=== PATIENT | male | born 1945 | race Caucasian/White ===

== ENCOUNTER 2024-12-22 13:41 | Outpatient (CLI) | payer MEDICARE, SELFPAY | END 2024-12-22 13:42 | disposition home or self-care (01) | LOC: AMB 12-23 14:26 | PROVIDERS: Visit Provider Student in an Organized Health Care Education/Training Program | DX: R11.2 Nausea with vomiting, unspecified (principal) | CPT/HCPCS: A0425; A0427 ==

== ENCOUNTER 2024-12-22 14:13 | Inpatient (IN) | payer MEDICARE, SELFPAY ==
[2024-12-22] VITALS (27 sets, daily range): BP systolic 132–167; BP diastolic 66–84; PULSE 69–87; RESP 0–43; TEMP 36.2–36.4; O2SAT 93–97; BMI 24.1; BMI 23.8
--- NOTE | 2024-12-22 14:22 | ED_ITS ---
HPI - General Adult General Chief complaint: Nausea/Vomiting Stated complaint: Nausea, Vomiting Time Seen by Provider: 12/22/24 14:14 History of Present Illness HPI narrative: Bystander called after finding pt. slumped over sitting on a bench and vomitting. He does not remember some of the situation. Pt. said he also feels some eye strain He says this happened when he was 6 or 7 years old 79-year-old man presenting to the emergency department with concern of apparent syncope event and vomiting. He still feeling some nausea. And he recalls having left [place]. Became tired sat on the bench and next thing he knows somebody was waking up And he had vomit on him. He had no chest pain or sense of palpitations. 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 Does not recall more details on this. Has never been cardioverted. Does not have a headache beyond maybe a little ?eye strain?. No seizure history. Prior to this walk today he was in usual state of health. No recent fever cough or cold symptoms. No noted diarrhea. No abdominal pain. Related Data Home Medications ?Medication ?Instructions ?Recorded ?Confirmed albuterol sulfate 90 mcg/actuation 1 - 2 inh inhalation Q4H PRN 12/22/24 12/22/24 breath activated powder inhaler allopurinol 100 mg tablet 200 mg PO DAILY 12/22/24 12/22/24 aspirin 81 mg tablet,delayed 81 mg PO HS 12/22/24 12/22/24 release (Enteric Coated Aspirin) atorvastatin 40 mg tablet 40 mg PO HS 12/22/24 12/22/24 clobetasol 0.05 % topical cream 1 applic topical BID PRN 12/22/24 12/22/24 colchicine 0.6 mg tablet 0.6 mg PO DIRECTED PRN 12/22/24 12/22/24 ferrous sulfate 325 mg (65 mg 325 mg PO Q48H 12/22/24 12/22/24 iron) tablet fluticasone furoate 200 1 inh inhalation DAILY 12/22/24 12/22/24 mcg-vilanterol 25 mcg/dose inhalation powder (Breo Ellipta) fluticasone propionate 50 1 spray intranasal DAILY 12/22/24 12/22/24 mcg/actuation nasal spray,suspension (Flonase Allergy Relief) hydrochlorothiazide 12.5 mg tablet 12.5 mg PO DAILY 12/22/24 12/22/24 metformin 500 mg tablet,extended 1,000 mg PO BID 12/22/24 12/22/24 release 24 hr omeprazole magnesium 20 mg 20 mg PO DAILY 12/22/24 12/22/24 capsule,delayed release valsartan 160 mg tablet 160 mg PO HS 12/22/24 12/22/24 Allergies Allergy/AdvReac Type Severity Reaction Status Date / Time No Known Drug Allergies Allergy Verified 12/22/24 14:25 Review of Systems Status of ROS: Reports: 6 or more systems reviewed and unremarkable except as noted in History and below [facility] Medical History Diabetes mellitus ?E11.9 - Type 2 diabetes mellitus without complications (ICD-10) GERD (gastroesophageal reflux disease) ?K21.9 - Gastro-esophageal reflux disease without esophagitis (ICD-10) Hyperlipidemia ?E78.5 - Hyperlipidemia, unspecified (ICD-10) COPD (chronic obstructive pulmonary disease) ?J44.9 - Chronic obstructive pulmonary disease, unspecified (ICD-10) Gout ?M10.9 - Gout, unspecified (ICD-10) Hypertension ?I10 - Essential (primary) hypertension (ICD-10) Social History What is your current living situation?: I presently have a place to live Problems where you live: no known problems Problems where you live details: none In the past 12 months, utilities in danger of being shut off: no In past 12 months, lack of transportation kept you from medical appts, meetings, work, or getting things needed for daily living: no In the past 12 mos, have been you worried that your food would run out before you had money to buy more?: never true In the past 12 mos, the food you bought just didn't last and you didn't have money to buy more?: never true Highest level of school completed/degree received: some college, no degree Smoking Status: Former smoker Do you use any of these nicotine containing products: None Second hand tobacco smoke exposure: No How often do you have a drink containing alcohol: monthly or less AUDIT-C Alcohol total score: 1 Non-prescribed substance use: denies use Caffeine: Yes (3 cups coffee daily) How often does anyone, including family, friends and others, physically hurt you : never How often does anyone, including family, friends and others, insult or talk down to you: never How often does anyone, including family, friends and others, threaten you with harm: never How often does anyone, including family, friends and others, scream or curse at you: never service: No Exam Narrative: Exam Narrative: Pleasant man NAD. GCS 15. Looks like he doesn't feel very good. He has cold washcloth on his forehead. Cranial nerves 2-12 are intact. Pupils are 2-3 mm and equal and appropriately briskly reactive. Accommodating. Extraocular movements are full without nystagmus. Head is atraumatic. Neck is supple nontender. Back nontender. Lungs clear. Heart with 1/6 systolic crescendo murmur with radiation at least into the right carotid. Heart appears to be in an irregularly irregular rhythm. Abdomen is soft and nontender. He is moving all extremities without difficulty. Well-perfused. Const: Vital Signs, click to edit/add: Vital Signs - 24 hr 12/22/24 14:19 12/22/24 14:25 12/22/24 14:26 Temperature 97.1 F L Pulse Rate 86 87 Pulse Rate [Right Radial] 79 Respiratory Rate 14 8 L 9 L Blood Pressure 167/84 H Blood Pressure [Ri ght Upper Arm] 167/84 H Pulse Oximetry 94 95 95 Oxygen Delivery Me thod Room Air Room Air 12/22/24 14:30 12/22/24 14:43 12/22/24 14:45 Temperature Pulse Rate 84 87 Pulse Rate [Right Radial] Respiratory Rate 9 L 21 Blood Pressure Blood Pressure [Ri ght Upper Arm] Pulse Oximetry 95 97 93 Oxygen Delivery Me thod 12/22/24 15:00 12/22/24 15:08 12/22/24 15:51 Temperature Pulse Rate 84 84 80 Pulse Rate [Right Radial] Respiratory Rate 11 L 12 9 L Blood Pressure 144/66 H Blood Pressure [Ri ght Upper Arm] Pulse Oximetry 96 94 Oxygen Delivery Me thod Room Air 12/22/24 15:52 12/22/24 15:52 12/22/24 16:00 Temperature Pulse Rate 87 87 75 Pulse Rate [Right Radial] Respiratory Rate 13 13 13 Blood Pressure 142/68 H 142/68 H Blood Pressure [Ri ght Upper Arm] Pulse Oximetry 96 93 Oxygen Delivery Me thod 12/22/24 16:15 12/22/24 16:30 12/22/24 16:45 Temperature Pulse Rate 78 74 76 Pulse Rate [Right Radial] Respiratory Rate 0 L 8 L 11 L Blood Pressure Blood Pressure [Ri ght Upper Arm] Pulse Oximetry 96 95 97 Oxygen Delivery Me thod 12/22/24 17:00 12/22/24 17:07 12/22/24 17:07 Temperature Pulse Rate 78 78 Pulse Rate [Right Radial] Respiratory Rate 7 L 12 12 Blood Pressure 138/79 138/79 Blood Pressure [Ri ght Upper Arm] Pulse Oximetry 96 96 Oxygen Delivery Me thod Room Air 12/22/24 17:15 12/22/24 17:30 12/22/24 17:45 Temperature Pulse Rate 77 76 79 Pulse Rate [Right Radial] Respiratory Rate 13 9 L 15 Blood Pressure Blood Pressure [Ri ght Upper Arm] Pulse Oximetry 97 95 97 Oxygen Delivery Me thod Documenting provider has reviewed patient's vital signs: yes Course Vital Signs Vital signs: Initial Vital Signs Temperature 97.1 F L 12/22/24 14:19 Temperature Source Temporal Artery Scan 12/22/24 14:19 Pulse Rate 79 12/22/24 14:19 Pulse Rhythm Regular 12/22/24 14:19 Respiratory Rate 14 12/22/24 14:19 Blood Pressure 167/84 H 12/22/24 14:19 Blood Pressure Mean 111 H 12/22/24 14:19 Pulse Oximetry 94 12/22/24 14:19 Oxygen Delivery Method Room Air 12/22/24 14:19 Vital Signs Temperature 97.1 F L 12/22/24 14:19 Pulse Rate 79 12/22/24 14:19 Respiratory Rate 14 12/22/24 14:19 Blood Pressure 167/84 H 12/22/24 14:19 Pulse Oximetry 94 12/22/24 14:19 Oxygen Delivery Method Room Air 12/22/24 14:19 Temperature 97.1 F L 12/23/24 02:50 Pulse Rate 73 12/23/24 02:50 Respiratory Rate 16 12/23/24 02:50 Blood Pressure 140/74 H 12/23/24 02:50 Pulse Oximetry 96 12/23/24 02:50 Oxygen Delivery Method Room Air 12/23/24 02:50 Medications Administered Medications: Discontinued Medications Generic Name Dose Route Start Last Admin Trade Name Elizabeth PRN Reason Stop Dose Admin Aspirin 324 mg 12/22/24 19:29 12/22/24 21:41 Aspirin 81 Mg Tab.Chew PO 12/22/24 19:30 324 mg ONCE ONE Administration Atorvastatin Calcium 40 mg 12/22/24 21:00 12/22/24 21:40 Atorvastatin Calcium 40 Mg Tablet PO 40 mg HS KB Administration Clopidogrel Bisulfate 300 mg 12/22/24 19:29 12/22/24 21:49 Clopidogrel 300 Mg Tablet PO 12/22/24 19:30 300 mg ONCE ONE Administration Heparin Sodium (Porcine) 4,000 unit 12/22/24 18:59 12/22/24 19:05 Heparin 5,000 Unit/0.5 Ml Inj IVP 12/22/24 19:00 4,000 unit ONCE ONE Administration Sodium Chloride 1,000 mls @ 1,000 mls/hr 12/22/24 14:42 12/22/24 17:08 0.9 % Sodium Chloride 1000 Ml IV 12/22/24 15:41 Infused .Q1H ONE Infusion Heparin Sodium/Dextrose 25,000 unit in 500 mls @ 0 mls/hr 12/22/24 18:30 12/23/24 02:23 Heparin IV 0 unit/hr .Q0M KB 0 mls/hr Infusion Protocol Per Protocol Insulin Aspart 0 unit 12/22/24 21:00 12/22/24 21:41 Insulin Aspart 100 Unit/Ml SUBCUT Not Given ACHS [facility] Protocol Ondansetron HCl 4 mg 12/22/24 14:45 12/22/24 14:55 Ondansetron 2 Mg/Ml Inj IVP 12/22/24 14:46 4 mg ONCE ONE Administration Promethazine HCl 12.5 mg 12/22/24 16:47 12/22/24 17:07 Promethazine 25 Mg/Ml Inj IVP 12/22/24 16:48 12.5 mg ONCE ONE Administration Sodium Chloride 5 ml 12/22/24 21:00 12/22/24 22:46 Sodium Chloride 0.9 % (Flush) 10 Ml Syringe IVF 5 ml BID KB Administration Valsartan 160 mg 12/22/24 21:00 12/22/24 21:48 Valsartan 160 Mg Tablet PO 160 mg HS KB Administration Medical Decision Making MDM Narrative Medical decision making narrative: Appears to have had a syncopal event of unclear origin. Differential includes cerebrovascular event; more specifically head bleed without evidence of ischemic injury at this time, arrhythmia/tachyarrhythmia/dysrhythmia, myocardial infarctions well. May have been simply a vasovagal event related to vomiting secondary to viral illness. Give antiemetic and IV hydration. On monitor during my interview with him he is showing intermittent PVCs as well as what appears to be a rather irregular rhythm. Pending EKG. EKG independently reviewed by me with what initially appears to be atrial fibrillation but p waves appear to be not reliably conducting. Rate of 74. Left bundle? PVCs. No prior for comparison at this time. Flutter? TECHNIQUE: Multiplanar CT examination of the head was performed without the use of intravenous contrast. INDICATION: Syncope. COMPARISON: None. FINDINGS: No loss of blevins-white differentiation to suggest recent territorial infarct. No intracranial hemorrhage, abnormal extra-axial fluid collection, hydrocephalus or midline shift. The ventricles and cerebral sulci are prominent caliber, compatible with mild generalized parenchymal volume loss. Patchy hypoattenuation of the supratentorial white matter diffusely, nonspecific but consistent with chronic microvascular ischemic changes. Tiny hypodensity within the right basal ganglia, possibly a chronic lacunar infarct. The basal cisterns are patent. The paranasal sinuses and mastoid air cells remain clear. Status post bilateral lens removal. The orbits and calvarium are unremarkable. The cerebellar tonsils are normal position. IMPRESSION: 1. No acute intracranial findings. 2. Mild generalized parenchymal volume loss with chronic microvascular ischemic changes. Please note that all CT scans at this facility use dose modulation, iterative reconstruction, and/or weight-based dosing when appropriate to reduce radiation dose to as low as reasonably achievable. Dictated by Rubén Ruiz MD @ 12/22/2024 3:25:11 PM Will need to confirm presence of paroxysmal atrial fibrillation and/or left bundle and medications. Waiting daughter's input. I am not sure if we will be able to otherwise confirm new onset AFib and if might be a candidate for cardioversion. Did also reach out to Cardiology and they also suspect a flutter in this EKG. On reassessment is still feeling nauseated. Ordered for some promethazine. While talking with him it seems as though in a more regular rhythm. Requesting repeat EKG. I am anticipating admission here for monitoring, possible echocardiogram. Did review records just obtained from [facility] in [facility]. Underlying history of [id number] aortic stenosis, diabetes, hypertension, dyslipidemia, tophaceous gout, Arvizu's esophagus Looks like repeat EKG is back in sinus. Rate of 71. PVC. Left bundle. I do see EKG on records obtained from 03/06 and does not appear to have a left bundle at that time Did discuss this case with hospitalist. Will be admitting pending normal repeat troponin Still without chest pain. Overall stable. However approximately 2 hour troponin returns now elevated having gone from 0.02 to 0.17. Discussed again with cardiology. 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 Would like repeat echocardiogram he here if available tomorrow and no appropriate beds current available at [facility] and would like echocardiogram before making further cares. Medical Records Medical records reviewed: Yes I reviewed the patient's medical records Lab Data Lab results reviewed: Yes I reviewed the patient's lab results Labs: Lab Results 12/22/24 12/22/24 12/22/24 Range/Units 14:42 14:44 15:00 WBC 11.55 H (4.50-11.00) K/uL RBC 3.94 L (4.30-5.90) m/uL Hgb 13.6 (13.5-17.5) gm/dL Hct 39.1 (37.0-53.0) % MCV 99 (80-100) fL MCH 35 H (26-34) pg MCHC 35 (32-36) gm/dL RDW Coeff of Terrance 12.4 (11.5-15.5) % Plt Count 170 (140-440) K/uL Neut % (Auto) 73.4 H (42.0-72.0) % Lymph % (Auto) 15.0 L (20-44) % Scott % (Auto) 8.7 (0.0-11.0) % Eos % (Auto) 1.2 (0.0-7.0) % Baso % (Auto) 0.3 (0.0-3.0) % Neut # (Auto) 8.50 H (1.7-7.0) K/uL Lymph # (Auto) 1.70 (0.90-2.90) K/uL Scott # (Auto) 1.00 H (0.00-0.90) K/UL Eos # (Auto) 0.10 (0.00-0.50) K/uL Baso # (Auto) 0.00 (0.00-0.30) K/uL Abs Immat Gran (auto) 0.20 (0.00-0.30) K/uL Imm/Tot Granulo (auto) 1.4 % INR 0.97 (0.91-1.10) APTT 32 (23-33) Seconds Sodium 131 L (135-149) mmol/L Potassium 3.6 (3.6-5.1) mmol/L Chloride 98 (96-114) mmol/L Carbon Dioxide 21 (20-32) mmol/L Anion Gap 12 (7-15) mEq/L BUN 15 (7-30) mg/dL Creatinine 1.0 (0.5-1.5) mg/dL Estimated Creat Clear 59.82 Estimated GFR 76 ml/min Glucose 192 H (60-115) mg/dL Lactate (0.5-1.9) mmol/L Calcium 9.1 (8.4-10.6) mg/dL Phosphorus 2.9 (2.5-4.5) mg/dL Magnesium 1.9 (1.5-2.6) mg/dL Total Bilirubin 0.5 (0.1-1.5) mg/dL Direct Bilirubin 0.3 (0.0-0.5) mg/dL AST 39 H (12-35) U/L ALT 36 (4-50) U/L Alkaline Phosphatase 66 (40-150) U/L Troponin I 0.02 (0.01-0.04) ng/mL NT-Pro-B Natriuret Pep 430 pg/mL Total Protein 6.7 (6.0-8.3) g/dL Albumin 4.3 (3.3-5.0) g/dL Urine Color Yellow (Yellow) Urine Appearance Clear (Clear) Urine pH 6.0 (5.0-8.5) Ur Specific [place] 1.015 (1.000-1.030) Urine Protein 1+ A (Negative) Urine Glucose (UA) Negative (Negative) Urine Ketones Trace A (Negative) Urine Blood Negative (Negative) Urine Nitrite Negative (Negative) Urine Bilirubin Negative (Negative) Urine Urobilinogen 0.2 (0.2-1.0) Ur Leukocyte Esterase Negative (Negative) Urine RBC 0-2 (0-2) Urine WBC 0-2 (0-5) Ur Squamous Epith Cells None (None-Few) Other Sediment Few A (None) Urine Bacteria None (None) SARS-CoV-2 (PCR) Negative SARS-CoV-2 (Negative) Influenza Type A (PCR) Negative PCR FLU A (Negative) Influenza Type B (PCR) Negative PCR FLU B (Negative) RSV (PCR) Negative PCR RSV (Negative) POC Troponin I 0.02 (0.01-0.04) ng/ml 12/22/24 12/22/24 Range/Units 16:08 17:20 WBC (4.50-11.00) K/uL RBC (4.30-5.90) m/uL Hgb (13.5-17.5) gm/dL Hct (37.0-53.0) % MCV (80-100) fL MCH (26-34) pg MCHC (32-36) gm/dL RDW Coeff of Terrance (11.5-15.5) % Plt Count (140-440) K/uL Neut % (Auto) (42.0-72.0) % Lymph % (Auto) (20-44) % Scott % (Auto) (0.0-11.0) % Eos % (Auto) (0.0-7.0) % Baso % (Auto) (0.0-3.0) % Neut # (Auto) (1.7-7.0) K/uL Lymph # (Auto) (0.90-2.90) K/uL Scott # (Auto) (0.00-0.90) K/UL Eos # (Auto) (0.00-0.50) K/uL Baso # (Auto) (0.00-0.30) K/uL Abs Immat Gran (auto) (0.00-0.30) K/uL Imm/Tot Granulo (auto) % INR (0.91-1.10) APTT (23-33) Seconds Sodium (135-149) mmol/L Potassium (3.6-5.1) mmol/L Chloride (96-114) mmol/L Carbon Dioxide (20-32) mmol/L Anion Gap (7-15) mEq/L BUN (7-30) mg/dL Creatinine (0.5-1.5) mg/dL Estimated Creat Clear Estimated GFR ml/min Glucose (60-115) mg/dL Lactate 1.3 (0.5-1.9) mmol/L Calcium (8.4-10.6) mg/dL Phosphorus (2.5-4.5) mg/dL Magnesium (1.5-2.6) mg/dL Total Bilirubin (0.1-1.5) mg/dL Direct Bilirubin (0.0-0.5) mg/dL AST (12-35) U/L ALT (4-50) U/L Alkaline Phosphatase (40-150) U/L Troponin I 0.17 H* (0.01-0.04) ng/mL NT-Pro-B Natriuret Pep pg/mL Total Protein (6.0-8.3) g/dL Albumin (3.3-5.0) g/dL Urine Color (Yellow) Urine Appearance (Clear) Urine pH (5.0-8.5) Ur Specific [place] (1.000-1.030) Urine Protein (Negative) Urine Glucose (UA) (Negative) Urine Ketones (Negative) Urine Blood (Negative) Urine Nitrite (Negative) Urine Bilirubin (Negative) Urine Urobilinogen (0.2-1.0) Ur Leukocyte Esterase (Negative) Urine RBC (0-2) Urine WBC (0-5) Ur Squamous Epith Cells (None-Few) Other Sediment (None) Urine Bacteria (None) SARS-CoV-2 (PCR) (Negative) Influenza Type A (PCR) (Negative) Influenza Type B (PCR) (Negative) RSV (PCR) (Negative) POC Troponin I (0.01-0.04) ng/ml ECG Data Attestation: I personally reviewed and interpreted this ECG as follows: (1. Possibly atrial flutter at a rate of 74. Left bundle. PVCs ) Discharge Plan Discharge Clinical Impression: Atrial flutter, Syncope, Unifocal PVCs, Left bundle branch block (LBBB), Non-ST elevation [place] (NSTEMI) Patient Disposition: Admitted As Observation Condition: Stable
[2024-12-22] MEDS: ONDANSETRON 2 MG/ML inj 4 MG IVP (14:55)
[2024-12-22] MEDS: 0.9 % SODIUM CHLORIDE 1000 ml 1,000 ML IV (14:56)
[2024-12-22 15:09] LABS: Basophils Percent Auto 0.3 % (0.0-3.0); Eosinophils Percent Auto 1.2 % (0.0-7.0); Hematocrit 39.1 % (37.0-53.0); Hemoglobin* 13.6 gm/dL (13.5-17.5); Immature Granulocytes Pct Auto 1.4 %; Mean Corpuscular HGB Conc 35 gm/dL (32-36); Mean Corpuscular Hemoglobin 35 pg (26-34); Mean Corpuscular Volume 99 fL (80-100); Monocytes Percent Auto 8.7 % (0.0-11.0); Neutrophils Percent Auto 73.4 % (42.0-72.0); Platelet Count* 170 K/uL (140-440); RDW Coefficient of Variation % 12.4 % (11.5-15.5); Red Blood Count 3.94 m/uL (4.30-5.90); White Blood Count* 11.55 K/uL (4.50-11.00)
[2024-12-22 15:13] LABS: Troponin, Point-of-Care* 0.02 ng/ml (0.01-0.04)
[2024-12-22 15:16] LABS: Slide Review Reflex No
[2024-12-22 15:21] LABS: Chloride* 98 mmol/L (96-114); Potassium* 3.6 mmol/L (3.6-5.1); Sodium* 131 mmol/L (135-149)
[2024-12-22 15:24] LABS: Anion Gap 12 mEq/L (7-15); Blood Urea Nitrogen* 15 mg/dL (7-30); Calcium* 9.1 mg/dL (8.4-10.6); Carbon Dioxide* 21 mmol/L (20-32); Est. Creatinine Clearance* 59.82; Estimated Glomerular Filt Rate 76 ml/min; Glucose* 192 mg/dL (60-115)
[2024-12-22 15:25] LABS: Magnesium* 1.9 mg/dL (1.5-2.6)
[2024-12-22 16:03] LABS: NT Pro B Type NatriureticPept* 430 pg/mL
[2024-12-22 16:06] LABS: Troponin I* 0.02 ng/mL (0.01-0.04)
[2024-12-22 16:12] LABS: Lactate* 1.3 mmol/L (0.5-1.9)
[2024-12-22] MEDS: PROMETHAZINE 25 MG/ML INJ 12.5 MG IVP (17:07)
[2024-12-22 18:01] LABS: Appearance Urine Clear (Clear); Bilirubin Urine Negative (Negative); Blood Urine Negative (Negative); Color Urine Yellow (Yellow); Glucose Urine Negative (Negative); Ketones Urine Trace (Negative); Leukocyte Esterase Urine Negative (Negative); Nitrite Urine Negative (Negative); Protein Urine 1+ (Negative); Specific Gravity Urine 1.015 (1.000-1.030); Urobilinogen Urine 0.2 (0.2-1.0)
[2024-12-22 18:15] LABS: RBC Urine 0-2 (0-2); WBC Urine 0-2 (0-5)
[2024-12-22 18:16] LABS: Other Sediment Urine Few
[2024-12-22 18:18] LABS: Troponin I* 0.17 ng/mL (0.01-0.04)
[2024-12-22 18:36] LABS: PCR FLU A Negative PCR FLU A (Negative); PCR FLU B Negative PCR FLU B (Negative); PCR RSV Negative PCR RSV (Negative); SARS PCR* Negative SARS-CoV-2 (Negative)
[2024-12-22] MEDS: HEPARIN 25,000 UNIT/500 ML BAG 18 UNIT IV (18:50)
[2024-12-22] MEDS: HEPARIN 5,000 UNIT/0.5 ML INJ 4000 UNIT IVP (19:05)
[2024-12-22 19:42] LABS: Albumin* 4.3 g/dL (3.3-5.0)
[2024-12-22 19:45] LABS: Alanine Aminotransferase* 36 U/L (4-50); Alkaline Phosphatase* 66 U/L (40-150); Aspartate Amino Transferase* 39 U/L (12-35); Bilirubin Direct* 0.3 mg/dL (0.0-0.5); Bilirubin Total* 0.5 mg/dL (0.1-1.5); Phosphorus* 2.9 mg/dL (2.5-4.5); Total Protein* 6.7 g/dL (6.0-8.3)
--- NOTE | 2024-12-22 19:54 | PM.IMHP1 ---
Hospitalist- H&P: COLE History of Present Illness Date Seen: 12/22/24 Chief complaint: Nausea, Vomiting Narrative: Angel Guerrero is a 79 year old male past medical history significant for hypertension, diabetes mellitus on metformin, gout, hyperlipidemia, COPD, GERD is admitted to the medical floor from the ED for further management of a NSTEMI. Patient is seen with daughter, Katie, at bedside. Patient reports waking this morning, feeling his normal self, going about his usual activities. [place] and began feeling mildly short of breath after approximately 5-6 blocks. Was also feeling some soreness in his hips. He remembers sitting down on a bench to rest. He remembers nothing after that other than speaking with a couple who were inquiring if he was okay. He was still sitting on the bench at that time and noticed that he had vomited on himself as well. Denies any headaches, dizziness, lightheadedness today. Denies any chest pain or tightness today. Has had his usual shortness of breath, no worse than usual. He tells me he used to walk 5 miles a day but this was approximately 8 years ago. He then started biking on a tricycle. In the last year or so he walks approximately 6000 steps before needing to rest due to feeling short of breath. He tells me he took his rescue inhaler with him today in case he needed it. No recent fevers. He was not nauseous earlier this morning. He had been nauseous with further vomiting while in the ED. Nausea has resolved since receiving Zofran and Compazine. Denies abdominal pain or bloating today. Last bowel movement was this morning and was normal for him. No recent change in medications. Patient recently moved to [place] from [facility]. Currently resides at [facility], in independent living. Previous primary care was at [facility] [place]. Unfortunately, we have no available records in EMR. Patient tells me he has had an echocardiogram in the recent past. Denies history of arrhythmias on previous EKGs or on his last echo. No previous ND or stents. Former smoker having quit years ago. Rare alcohol use following a dry October. Wishes to be DNR/DNI as discussed with patient and daughter, Katie, a RN at [facility]. In the ED, patient was noted to have an arrhythmia, possibly flutter with PVCs. A repeat EKG showing a sinus rhythm. Both with LBBB. Initial troponin 0.02. This trended up to 0.17. Nausea resolved with antiemetics. No chest pain reported. ED provider discussed with DARLYN CastilloW, cardiology, recommending local hospitalization with echocardiogram tomorrow. Follow-up with cardiology pending results if showing significant disease is recommended. No bed availability for transfer reported. Review of Systems Narrative: REVIEW OF SYSTEMS: Complete review of systems performed and negative unless otherwise stated in HPI or below. PFSH PFSH Medical History Diabetes mellitus ?E11.9 - Type 2 diabetes mellitus without complications (ICD-10) GERD (gastroesophageal reflux disease) ?K21.9 - Gastro-esophageal reflux disease without esophagitis (ICD-10) Hyperlipidemia ?E78.5 - Hyperlipidemia, unspecified (ICD-10) COPD (chronic obstructive pulmonary disease) ?J44.9 - Chronic obstructive pulmonary disease, unspecified (ICD-10) Gout ?M10.9 - Gout, unspecified (ICD-10) Hypertension ?I10 - Essential (primary) hypertension (ICD-10) Social History Smoking Status: Former smoker Do you use any of these nicotine containing products: None Second hand tobacco smoke exposure: No How often do you have a drink containing alcohol: monthly or less AUDIT-C Alcohol total score: 1 Non-prescribed substance use: denies use service: No Meds Home Medications and Allergies Home Medications ?Medication ?Instructions ?Recorded ?Confirmed ?Type albuterol sulfate 90 mcg/actuation 1 - 2 inh inhalation Q4H PRN 12/22/24 12/22/24 History breath activated powder inhaler allopurinol 100 mg tablet 200 mg PO DAILY 12/22/24 12/22/24 History aspirin 81 mg tablet,delayed 81 mg PO HS 12/22/24 12/22/24 History release (Enteric Coated Aspirin) atorvastatin 40 mg tablet 40 mg PO HS 12/22/24 12/22/24 History clobetasol 0.05 % topical cream 1 applic topical BID PRN 12/22/24 12/22/24 History colchicine 0.6 mg tablet 0.6 mg PO DIRECTED PRN 12/22/24 12/22/24 History ferrous sulfate 325 mg (65 mg 325 mg PO Q48H 12/22/24 12/22/24 History iron) tablet fluticasone furoate 200 1 inh inhalation DAILY 12/22/24 12/22/24 History mcg-vilanterol 25 mcg/dose inhalation powder (Breo Ellipta) fluticasone propionate 50 1 spray intranasal DAILY 12/22/24 12/22/24 History mcg/actuation nasal spray,suspension (Flonase Allergy Relief) hydrochlorothiazide 12.5 mg tablet 12.5 mg PO DAILY 12/22/24 12/22/24 History metformin 500 mg tablet,extended 1,000 mg PO BID 12/22/24 12/22/24 History release 24 hr omeprazole magnesium 20 mg 20 mg PO DAILY 12/22/24 12/22/24 History capsule,delayed release valsartan 160 mg tablet 160 mg PO HS 12/22/24 12/22/24 History Allergies Allergy/AdvReac Type Severity Reaction Status Date / Time No Known Drug Allergies Allergy Verified 12/22/24 14:25 Exam Narrative: Exam Narrative: PHYSICAL EXAM General: Pleasant, conversant, NAD HEENT: Normocephalic, atraumatic, sclera white, EOMI, oral mucosa moist Cardiovascular: RRR, murmur noted. No pitting edema Pulmonary: CTA bilaterally without rhonchi, rales, expiratory wheezes. No dyspnea on room air Abdominal: Soft, nondistended, NTTP Neurological: Alert, answering questions appropriately, cranial nerves intact, no focal findings Extremities: No gross joint deformity or swelling. AROMI. Neurovascularly intact Skin: Warm, dry. Const: Vital Signs, click to edit/add: Vital Signs - 24 hr 12/22/24 14:19 12/22/24 14:25 12/22/24 14:26 Temperature 97.1 F L Pulse Rate 86 87 Pulse Rate [Right Radial] 79 Respiratory Rate 14 8 L 9 L Blood Pressure 167/84 H Blood Pressure [Ri ght Upper Arm] 167/84 H Pulse Oximetry 94 95 95 Oxygen Delivery Me thod Room Air Room Air 12/22/24 14:30 12/22/24 14:43 12/22/24 14:45 Temperature Pulse Rate 84 87 Pulse Rate [Right Radial] Respiratory Rate 9 L 21 Blood Pressure Blood Pressure [Ri ght Upper Arm] Pulse Oximetry 95 97 93 Oxygen Delivery Me thod 12/22/24 15:00 12/22/24 15:08 12/22/24 15:51 Temperature Pulse Rate 84 84 80 Pulse Rate [Right Radial] Respiratory Rate 11 L 12 9 L Blood Pressure 144/66 H Blood Pressure [Ri ght Upper Arm] Pulse Oximetry 96 94 Oxygen Delivery Me thod Room Air 12/22/24 15:52 12/22/24 15:52 12/22/24 16:00 Temperature Pulse Rate 87 87 75 Pulse Rate [Right Radial] Respiratory Rate 13 13 13 Blood Pressure 142/68 H 142/68 H Blood Pressure [Ri ght Upper Arm] Pulse Oximetry 96 93 Oxygen Delivery Me thod 12/22/24 16:15 12/22/24 16:30 12/22/24 16:45 Temperature Pulse Rate 78 74 76 Pulse Rate [Right Radial] Respiratory Rate 0 L 8 L 11 L Blood Pressure Blood Pressure [Ri ght Upper Arm] Pulse Oximetry 96 95 97 Oxygen Delivery Me thod 12/22/24 17:00 12/22/24 17:07 12/22/24 17:07 Temperature Pulse Rate 78 78 Pulse Rate [Right Radial] Respiratory Rate 7 L 12 12 Blood Pressure 138/79 138/79 Blood Pressure [Ri ght Upper Arm] Pulse Oximetry 96 96 Oxygen Delivery Me od Room Air 12/22/24 17:15 12/22/24 17:30 12/22/24 17:45 Temperature Pulse Rate 77 76 79 Pulse Rate [Right Radial] Respiratory Rate 13 9 L 15 Blood Pressure Blood Pressure [Ri ght Upper Arm] Pulse Oximetry 97 95 97 Oxygen Delivery Me thod 12/22/24 18:49 12/22/24 18:50 12/22/24 19:00 Temperature Pulse Rate 80 78 74 Pulse Rate [Right Radial] Respiratory Rate 13 12 43 H Blood Pressure 139/71 Blood Pressure [Ri ght Upper Arm] Pulse Oximetry 94 95 97 Oxygen Delivery Me thod 12/22/24 19:02 12/22/24 19:03 Temperature Pulse Rate 77 77 Pulse Rate [Right Radial] Respiratory Rate 8 L 10 L Blood Pressure 133/69 149/75 H Blood Pressure [Ri ght Upper Arm] Pulse Oximetry 95 96 Oxygen Delivery Me thod Room Air Hospitalist - H&P: Result Labs Labs: Short CBC 12/22/24 Range/Units 15:00 WBC 11.55 H (4.50-11.00) K/uL Hgb 13.6 (13.5-17.5) gm/dL Hct 39.1 (37.0-53.0) % Plt Count 170 (140-440) K/uL BMP 12/22/24 15:00 Sodium 131 L Potassium 3.6 Chloride 98 Carbon Dioxide 21 BUN 15 Creatinine 1.0 Glucose 192 H Calcium 9.1 Cardiac Enzymes 12/22/24 12/22/24 Range/Units 15:00 17:20 Troponin I 0.02 0.17 H* (0.01-0.04) ng/mL Liver Function 12/22/24 Range/Units 15:00 Total Bilirubin 0.5 (0.1-1.5) mg/dL Direct Bilirubin 0.3 (0.0-0.5) mg/dL AST 39 H (12-35) U/L ALT 36 (4-50) U/L Alkaline Phosphatase 66 (40-150) U/L Albumin 4.3 (3.3-5.0) g/dL Urine 12/22/24 Range/Units 14:42 Urine Color Yellow (Yellow) Urine Appearance Clear (Clear) Urine pH 6.0 (5.0-8.5) Ur Specific [place] 1.015 (1.000-1.030) Urine Protein 1+ A (Negative) Urine Glucose (UA) Negative (Negative) ECG Attestation: I personally reviewed and interpreted this ECG as follows: ECG interpretation date: 12/22/24 Interpretation: Two EKGs are reviewed. Initial at 2:51 p.m. does show what could be a flutter with PVCs, LBBB. Repeat EKG at 1655 shows a sinus rhythm, P waves present, Pac, LBBB Imaging CT scan - head: Attestation: I have reviewed the pertinent imaging results. Radiologist's impression: No loss of blevins-white differentiation to suggest recent territorial infarct. No intracranial hemorrhage, abnormal extra-axial fluid collection, hydrocephalus or midline shift. The ventricles and cerebral sulci are prominent caliber, compatible with mild generalized parenchymal volume loss. Patchy hypoattenuation of the supratentorial white matter diffusely, nonspecific but consistent with chronic microvascular ischemic changes. Tiny hypodensity within the right basal ganglia, possibly a chronic lacunar infarct. The basal cisterns are patent. The paranasal sinuses and mastoid air cells remain clear. Status post bilateral lens removal. The orbits and calvarium are unremarkable. The cerebellar tonsils are normal position. IMPRESSION: 1. No acute intracranial findings. 2. Mild generalized parenchymal volume loss with chronic microvascular ischemic changes. Assessment and Plan Assessment and plan (1) Syncope: Problem comment: Syncopal episode with vomiting - resolved. No previous history CT head shows no acute intracranial findings. Mild generalized parenchymal volume loss with chronic microvascular ischemic changes noted EKG findings as discussed below, elevated troponin Mild leukocytosis with left shift, lactate 1.3, UA unremarkable, triple swab negative CXR ordered - lungs clear, no acute appearing findings Echocardiogram in the morning PT/OT to assess. visitor services representative for discharge planning if would need services beyond independent living Status: Acute (2) Non-ST elevation ND (NSTEMI): Problem comment: Syncope, atrial flutter, LBBB, elevated troponin, murmur ED provider discussed with Dr. Wagner, Cardiology [facility]. No evidence of heart block at time of conversation. Recommending local hospitalization with echocardiogram tomorrow. Recommending calling Cardiology curbside tomorrow if there is concern about significant disease following echocardiogram Telemetry Trend troponin, repeat EKG Mag and phos WNL, AST 39 otherwise LFTs unremarkable, BNP 430, sodium 131, potassium 3.6 Heparin drip, clopidogrel, aspirin Consider Zio Patch 14 day with outpatient cardiology follow-up Status: Acute (3) Left bundle branch block (LBBB): Problem comment: Noted on both EKGs, no previous known history. ED provider discussed with Cardiology Telemetry Echocardiogram tomorrow Status: Acute (4) Atrial flutter: Problem comment: Noted on initial EKG, rate controlled Sinus rhythm on admission to floor. ED provider discussed both EKG findings with Cardiology Repeat EKG tonight. Echo ordered for tomorrow. No previous EKG for comparison Telemetry Consider rate control and anticoagulation if confirmed. Heparin drip for now Status: Acute (5) Hypertension: Problem comment: Continue valsartan Hold HCTZ in setting of mild hyponatremia Status: Acute (6) Gout: Problem comment: Hold allopurinol in setting of mild hyponatremia. Uses colchicine p.r.n. as well Status: Acute (7) COPD (chronic obstructive pulmonary disease): Problem comment: Stable, no hypoxia. Continue home inhalers. Incentive spirometry Status: Acute (8) Hyperlipidemia: Problem comment: Continue statin Lipid panel ordered Status: Acute (9) GERD (gastroesophageal reflux disease): Problem comment: Continue PPI Status: Acute (10) Diabetes mellitus: Problem comment: A1c ordered Hold metformin Glucose checks ACHS, insulin sliding scale Status: Acute (11) Hyponatremia: Problem comment: Sodium 131, unknown baseline. Hold allopurinol and HCTZ. Recheck in a.m. Status: Acute Total Time Spent Total Time Spent: Today I spent 75 minutes seeing the patient, discussing the patient with ER staff, reviewing Expanse and Epic notes/diagnostics, discussing the care plan with our team that includes social work, PT/OT, pharmacy, RT, group home and documenting my impressions and plan in the medical record.
[2024-12-22 20:52] LABS: INR 0.97 (0.91-1.10); Prothrombin Time 13.7 Seconds
[2024-12-22 20:53] LABS: Partial Thromboplastin Time* 32 Seconds (23-33)
[2024-12-22] MEDS: ATORVASTATIN CALCIUM 40 MG TABLET PO (21:40)
[2024-12-22] MEDS: ASPIRIN 81 MG TAB.CHEW 324 MG PO (21:41)
[2024-12-22] MEDS: VALSARTAN 160 MG TABLET PO (21:48)
[2024-12-22] MEDS: CLOPIDOGREL 300 MG TABLET PO (21:49)
[2024-12-22 21:55] LABS: Troponin I* 0.24 ng/mL (0.01-0.04)
[2024-12-22] MEDS: SODIUM CHLORIDE 0.9 % (FLUSH) 10 ML SYRINGE 5 ML IVF (22:46)
--- NOTE | 2024-12-22 22:49 | PM.DS1 ---
DS: Providers Provider Date Seen: 12/22/24 Date of admission: 12/22/24 19:29 Primary care physician: Herman Randhawa. Not yet established locally. [facility] Cons[facility]: 12/22/24 19:29 Consult to Occupational Therapy [CONS] Routine Comment: Reason(s) for OT Consult:: Evaluate and Treat Any Restrictions?:: No Restrictions Consult to Physical Therapy [CONS] Routine Comment: Reason(s) for PT Consult:: Evaluate and Treat Any Restrictions?:: No Restrictions Consult to Senior Investigator [CONS] Routine Comment: Reason for Consult:: Social Service Consult Attending Physician on discharge: [facility] Date of Discharge: 12/22/24 DS: Diagnosis Discharge Diagnosis (1) Syncope: Status: Acute Problem details: Syncopal episode with vomiting - resolved. No previous history CT head shows no acute intracranial findings. Mild generalized parenchymal volume loss with chronic microvascular ischemic changes noted EKG findings as discussed below, elevated troponin Mild leukocytosis with left shift, lactate 1.3, UA unremarkable, triple swab negative CXR ordered - lungs clear, no acute appearing findings Echocardiogram in the morning PT/OT to assess. manager social services for discharge planning if would need services beyond independent living (2) Non-ST elevation DE (NSTEMI): Status: Acute Problem details: Syncope, atrial flutter, LBBB, elevated troponin, murmur ED provider discussed with Dr. Wagner, Cardiology [facility]. No evidence of heart block at time of conversation. Recommending local hospitalization with echocardiogram tomorrow. Recommending calling Cardiology curbside tomorrow if there is concern about significant disease following echocardiogram Telemetry Trend troponin, repeat EKG Mag and phos WNL, AST 39 otherwise LFTs unremarkable, BNP 430, sodium 131, potassium 3.6 Heparin drip, clopidogrel, aspirin Consider Zio Patch 14 day with outpatient cardiology follow-up (3) Left bundle branch block (LBBB): Status: Acute Problem details: Noted on both EKGs, no previous known history. ED provider discussed with Cardiology Telemetry Echocardiogram tomorrow (4) Atrial flutter: Status: Acute Problem details: Noted on initial EKG, rate controlled Sinus rhythm on admission to floor. ED provider discussed both EKG findings with Cardiology Repeat EKG tonight. Echo ordered for tomorrow. No previous EKG for comparison Telemetry Consider rate control and anticoagulation if confirmed. Heparin drip for now (5) Hypertension: Status: Acute Problem details: Continue valsartan Hold HCTZ in setting of mild hyponatremia (6) Gout: Status: Acute Problem details: Hold allopurinol in setting of mild hyponatremia. Uses colchicine p.r.n. as well (7) COPD (chronic obstructive pulmonary disease): Status: Acute Problem details: Stable, no hypoxia. Continue home inhalers. Incentive spirometry (8) Hyperlipidemia: Status: Acute Problem details: Continue statin Lipid panel ordered (9) GERD (gastroesophageal reflux disease): Status: Acute Problem details: Continue PPI (10) Diabetes mellitus: Status: Acute Problem details: A1c ordered Hold metformin Glucose checks ACHS, insulin sliding scale (11) Hyponatremia: Status: Acute Problem details: Sodium 131, unknown baseline. Hold allopurinol and HCTZ. Recheck in a.m. DS: Summary Hospital Course Hospital Course: [age] year old male was admitted to the medical floor for further management NSTEMI following syncopal episode with vomiting. Course of care and details as noted above. Following admission to the medical floor from the ED, 6 hour troponin continued to trend up, 0.24 (0.02->0.17). Repeat EKG showing sinus rhythm, PACs, LBBB, no significant change but more regular rhythm noted. Remained vitally stable. Still no complaint of chest pain. Nausea and vomiting had resolved. Discussed again with [facility] Cardiology, Dr. Sarah, recommending transfer for expedited cardiology evaluation, echocardiogram, possible need for technical laboratory asst. Bed available at [facility] with 1-2 hour delay. Patient will be transported via ground, ALS. Continue on heparin drip. Received loading dose of clopidogrel 300mg and ASA 324mg on admission to the medical floor. Currently, no oxygen needs. Remainder of chronic medical comorbidities were monitored and managed with home medications. Status at Discharge Overall status at discharge: patient is not back to baseline Time Spent with Patient Time attestation: Total time spent providing and/or coordinating discharge services: Time spent: Greater than 30 minutes Exam Narrative: Exam Narrative: PHYSICAL EXAM General: Pleasant, conversant, NAD Cardiovascular: RRR Pulmonary: No dyspnea Neurological: Alert, answering questions appropriately Skin: Warm, dry. Const: Vital Signs, click to edit/add: Vital Signs - 24 hr 12/22/24 14:19 12/22/24 14:25 12/22/24 14:26 Temperature 97.1 F L Pulse Rate 86 87 Pulse Rate [Pulse Oximeter] Pulse Rate [Right Radial] 79 Respiratory Rate 14 8 L 9 L Blood Pressure 167/84 H Blood Pressure [Ri ght Arm] Blood Pressure [Ri ght Upper Arm] 167/84 H Pulse Oximetry 94 95 95 Oxygen Delivery Me thod Room Air Room Air 12/22/24 14:30 12/22/24 14:43 12/22/24 14:45 Temperature Pulse Rate 84 87 Pulse Rate [Pulse Oximeter] Pulse Rate [Right Radial] Respiratory Rate 9 L 21 Blood Pressure Blood Pressure [Ri ght Arm] Blood Pressure [Ri ght Upper Arm] Pulse Oximetry 95 97 93 Oxygen Delivery Me thod 12/22/24 15:00 12/22/24 15:08 12/22/24 15:51 Temperature Pulse Rate 84 84 80 Pulse Rate [Pulse Oximeter] Pulse Rate [Right Radial] Respiratory Rate 11 L 12 9 L Blood Pressure 144/66 H Blood Pressure [Ri ght Arm] Blood Pressure [Ri ght Upper Arm] Pulse Oximetry 96 94 Oxygen Delivery Me thod Room Air 12/22/24 15:52 12/22/24 15:52 12/22/24 16:00 Temperature Pulse Rate 87 87 75 Pulse Rate [Pulse Oximeter] Pulse Rate [Right Radial] Respiratory Rate 13 13 13 Blood Pressure 142/68 H 142/68 H Blood Pressure [Ri ght Arm] Blood Pressure [Ri ght Upper Arm] Pulse Oximetry 96 93 Oxygen Delivery Me thod 12/22/24 16:15 12/22/24 16:30 12/22/24 16:45 Temperature Pulse Rate 78 74 76 Pulse Rate [Pulse Oximeter] Pulse Rate [Right Radial] Respiratory Rate 0 L 8 L 11 L Blood Pressure Blood Pressure [Ri ght Arm] Blood Pressure [Ri ght Upper Arm] Pulse Oximetry 96 95 97 Oxygen Delivery Me thod 12/22/24 17:00 12/22/24 17:07 12/22/24 17:07 Temperature Pulse Rate 78 78 Pulse Rate [Pulse Oximeter] Pulse Rate [Right Radial] Respiratory Rate 7 L 12 12 Blood Pressure 138/79 138/79 Blood Pressure [Ri ght Arm] Blood Pressure [Ri ght Upper Arm] Pulse Oximetry 96 96 Oxygen Delivery Me thod Room Air 12/22/24 17:15 12/22/24 17:30 12/22/24 17:45 Temperature Pulse Rate 77 76 79 Pulse Rate [Pulse Oximeter] Pulse Rate [Right Radial] Respiratory Rate 13 9 L 15 Blood Pressure Blood Pressure [Ri ght Arm] Blood Pressure [Ri ght Upper Arm] Pulse Oximetry 97 95 97 Oxygen Delivery Me thod 12/22/24 18:49 12/22/24 18:50 12/22/24 19:00 Temperature Pulse Rate 80 78 74 Pulse Rate [Pulse Oximeter] Pulse Rate [Right Radial] Respiratory Rate 13 12 43 H Blood Pressure 139/71 Blood Pressure [Ri ght Arm] Blood Pressure [Ri ght Upper Arm] Pulse Oximetry 94 95 97 Oxygen Delivery Me thod 12/22/24 19:02 12/22/24 19:03 12/22/24 19:29 Temperature Pulse Rate 77 77 Pulse Rate [Pulse Oximeter] Pulse Rate [Right Radial] Respiratory Rate 8 L 10 L 16 Blood Pressure 133/69 149/75 H Blood Pressure [Ri ght Arm] Blood Pressure [Ri ght Upper Arm] Pulse Oximetry 95 96 97 Oxygen Delivery Me thod Room Air Room Air 12/22/24 19:29 12/22/24 22:12 12/22/24 22:12 Temperature 97.3 F L 97.3 F L Pulse Rate Pulse Rate [Pulse Oximeter] 81 Pulse Rate [Right Radial] Respiratory Rate 16 16 16 Blood Pressure Blood Pressure [Ri ght Arm] 136/78 136/78 Blood Pressure [Ri ght Upper Arm] Pulse Oximetry 97 97 97 Oxygen Delivery Me thod Room Air Room Air Room Air DS: Data Data Completed and Pending Labs on day of discharge: Labs from last 24 hours 12/22/24 12/22/24 12/22/24 21:06 20:35 19:29 WBC RBC Hgb Hct MCV MCH MCHC RDW Coeff of Terrance Plt Count Neut % (Auto) Lymph % (Auto) Travis % (Auto) Eos % (Auto) Baso % (Auto) Neut # (Auto) Lymph # (Auto) Travis # (Auto) Eos # (Auto) Baso # (Auto) Abs Immat Gran (auto) Imm/Tot Granulo (auto) INR APTT Sodium Potassium Chloride Carbon Dioxide Anion Gap BUN Creatinine Estimated Creat Clear Estimated GFR Glucose Lactate Calcium Phosphorus Magnesium Total Bilirubin Direct Bilirubin AST ALT Alkaline Phosphatase Troponin I 0.24 H* NT-Pro-B Natriuret Pep Total Protein Albumin Urine Color Urine Appearance Urine pH Ur Specific Staples Urine Protein Urine Glucose (UA) Urine Ketones Urine Blood Urine Nitrite Urine Bilirubin Urine Urobilinogen Ur Leukocyte Esterase Urine RBC Urine WBC Ur Squamous Epith Cells Other Sediment Urine Bacteria SARS-CoV-2 (PCR) Influenza Type A (PCR) Influenza Type B (PCR) RSV (PCR) Lab Acknowledgement Test Added Test Added POC Troponin I 12/22/24 12/22/24 12/22/24 17:20 16:08 15:00 WBC 11.55 H RBC 3.94 L Hgb 13.6 Hct 39.1 MCV 99 MCH 35 H MCHC 35 RDW Coeff of Terrance 12.4 Plt Count 170 Neut % (Auto) 73.4 H Lymph % (Auto) 15.0 L Travis % (Auto) 8.7 Eos % (Auto) 1.2 Baso % (Auto) 0.3 Neut # (Auto) 8.50 H Lymph # (Auto) 1.70 Travis # (Auto) 1.00 H Eos # (Auto) 0.10 Baso # (Auto) 0.00 Abs Immat Gran (auto) 0.20 Imm/Tot Granulo (auto) 1.4 INR 0.97 APTT 32 Sodium 131 L Potassium 3.6 Chloride 98 Carbon Dioxide 21 Anion Gap 12 BUN 15 Creatinine 1.0 Estimated Creat Clear 59.82 Estimated GFR 76 Glucose 192 H Lactate 1.3 Calcium 9.1 Phosphorus 2.9 Magnesium 1.9 Total Bilirubin 0.5 Direct Bilirubin 0.3 AST 39 H ALT 36 Alkaline Phosphatase 66 Troponin I 0.17 H* 0.02 NT-Pro-B Natriuret Pep 430 Total Protein 6.7 Albumin 4.3 Urine Color Urine Appearance Urine pH Ur Specific Staples Urine Protein Urine Glucose (UA) Urine Ketones Urine Blood Urine Nitrite Urine Bilirubin Urine Urobilinogen Ur Leukocyte Esterase Urine RBC Urine WBC Ur Squamous Epith Cells Other Sediment Urine Bacteria SARS-CoV-2 (PCR) Influenza Type A (PCR) Influenza Type B (PCR) RSV (PCR) Lab Acknowledgement POC Troponin I 12/22/24 12/22/24 14:44 14:42 WBC RBC Hgb Hct MCV MCH MCHC RDW Coeff of Terrance Plt Count Neut % (Auto) Lymph % (Auto) Travis % (Auto) Eos % (Auto) Baso % (Auto) Neut # (Auto) Lymph # (Auto) Travis # (Auto) Eos # (Auto) Baso # (Auto) Abs Immat Gran (auto) Imm/Tot Granulo (auto) INR APTT Sodium Potassium Chloride Carbon Dioxide Anion Gap BUN Creatinine Estimated Creat Clear Estimated GFR Glucose Lactate Calcium Phosphorus Magnesium Total Bilirubin Direct Bilirubin AST ALT Alkaline Phosphatase Troponin I NT-Pro-B Natriuret Pep Total Protein Albumin Urine Color Yellow Urine Appearance Clear Urine pH 6.0 Ur Specific Staples 1.015 Urine Protein 1+ A Urine Glucose (UA) Negative Urine Ketones Trace A Urine Blood Negative Urine Nitrite Negative Urine Bilirubin Negative Urine Urobilinogen 0.2 Ur Leukocyte Esterase Negative Urine RBC 0-2 Urine WBC 0-2 Ur Squamous Epith Cells None Other Sediment Few A Urine Bacteria None SARS-CoV-2 (PCR) Negative SARS-CoV-2 Influenza Type A (PCR) Negative PCR FLU A Influenza Type B (PCR) Negative PCR FLU B RSV (PCR) Negative PCR RSV Lab Acknowledgement POC Troponin I 0.02 Preliminary micro results at discharge 12/22/24 19:29 Urine Culture - Preliminary Urine,Clean Catch Culture in Progress Imaging CT scan - head: Attestation: I have reviewed the pertinent imaging results. Radiologist's impression: No loss of blevins-white differentiation to suggest recent territorial infarct. No intracranial hemorrhage, abnormal extra-axial fluid collection, hydrocephalus or midline shift. The ventricles and cerebral sulci are prominent caliber, compatible with mild generalized parenchymal volume loss. Patchy hypoattenuation of the supratentorial white matter diffusely, nonspecific but consistent with chronic microvascular ischemic changes. Tiny hypodensity within the right basal ganglia, possibly a chronic lacunar infarct. The basal cisterns are patent. The paranasal sinuses and mastoid air cells remain clear. Status post bilateral lens removal. The orbits and calvarium are unremarkable. The cerebellar tonsils are normal position. IMPRESSION: 1. No acute intracranial findings. 2. Mild generalized parenchymal volume loss with chronic microvascular ischemic changes. Chest x-ray: Attestation: I have reviewed the pertinent imaging results. Radiologist's impression: Devices: None. Lung volumes are moderate. No focal or diffuse opacities. No pleural effusion. No pneumothorax. Heart size is normal. Atherosclerotic plaques. IMPRESSION: Lungs clear. No acute appearing findings. Discharge Plan Discharge Disposition: [facility] Discharge Location: [facility] Date of Admission: 12/22/24 19:29 Attending Provider on Discharge: Jacqui Ahuja Primary Care Provider: Provider,Not a Local Condition: Stable Discharge Orders: Transfer of Care to Other Hospital (ORDER); Ordered 12/22/24 Ordered By: Jacqui Ahuja Oxygen: No Urinary Catheter: No Drips/Lines: Heparin drip Services not available here: Cardiology, rn labor delivery
[2024-12-23 02:19] LABS: Partial Thromboplastin Time* 127 Seconds (23-33)
[2024-12-23 02:50] VITALS: BP 140/74; PULSE 73; RESP 16; TEMP 36.2; O2SAT 96
--- NOTE | 2024-12-23 03:06 | PC.NURSE ---
End of shift report [id number]: Alert and oriented x 4. Denies any pain, SOB or chest pain throughout the shift. Denies any nausea or vomiting. Nurse to nurse report given at 2330 to Nura ECHEVERRIA at [facility] who will be patients primary nurse. PTT 127, per protocol to stop infusion for one hour then titrate. At 0250 EMS transport here to transfer to [facility], patient was still on hold with heparin drip and not scheduled to restart until 0. Forming Machine Adjuster placed call to JACKI Lyman to notify patient en route and updated with most recent PTT and troponin as well as when heparin drip was paused. Reviewed patient status upon dischargee. Patient belongings accounted for, patient stated that his daughter took his things home. Patient discharged from unit at 0300 via stretcher with EMS.
== END 2024-12-23 03:00 | disposition short-term general hospital (02) | DRG 281 ==
LOC: ED 17:13 → MEDSURG 18:57
PROVIDERS: Admitting Provider Physician Assistant; Emergency Provider Family Medicine; Visit Provider Family Medicine
DX: I21.4 Non-ST elevation (NSTEMI) myocardial infarction (principal); E87.1 Hypo-osmolality and hyponatremia; I48.92 Unspecified atrial flutter; E11.9 Type 2 diabetes mellitus without complications; R55 Syncope and collapse; I10 Essential (primary) hypertension; I44.7 Left bundle-branch block, unspecified; J44.9 Chronic obstructive pulmonary disease, unspecified; K21.9 Gastro-esophageal reflux disease without esophagitis; Z79.84 Long term (current) use of oral hypoglycemic drugs; Z79.82 Long term (current) use of aspirin; R01.1 Cardiac murmur, unspecified; M10.9 Gout, unspecified; E78.5 Hyperlipidemia, unspecified; Z87.891 Personal history of nicotine dependence
CPT/HCPCS: 36415; 70450; 71045; 80048; 80061; 80076; 81001; 82962; 83036; 83605; 83735; 83880; 84100; 84484; 85025; 85027; 85610; 85730; 87086; 87631; 93005; 94761; 99284; 99285; A9270; J1644; J2405; J2550; J7030

== ENCOUNTER 2024-12-23 02:53 | Outpatient (CLI) | payer MEDICARE, SELFPAY | END 2024-12-23 02:54 | disposition home or self-care (01) | LOC: AMB 12-24 09:19 | PROVIDERS: Visit Provider Family Medicine | DX: I21.4 Non-ST elevation (NSTEMI) myocardial infarction (principal); I44.7 Left bundle-branch block, unspecified | CPT/HCPCS: A0425; A0427 ==